=== PATIENT | male | born 2000 | race Caucasian/White ===

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

== ENCOUNTER 2024-10-03 21:06 | Emergency (ER) | payer BC, OTHER ==
[2024-10-03 21:19] VITALS: TEMP 98.7
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
[2024-10-03 23:48] VITALS: O2SAT 97
[2024-10-03] MEDS ORDERED: BACIGUENT PACKET ONE ×2 (23:52→23:55)
[2024-10-03] MEDS: BACIGUENT PACKET TP ONE (23:55)
[2024-10-04 00:07] VITALS: BP 128/79; PULSE 66; RESP 17
== END 2024-10-04 00:08 | disposition home or self-care (01) ==
LOC: ED 21:06
DX: S00.93XA Contusion of unspecified part of head, initial encounter (principal); S00.33XA Contusion of nose, initial encounter; Y04.2XXA Assault by strike against or bumped into by another person, initial encounter; Y92.143 Cell of prison as the place of occurrence of the external cause; Y99.0 Civilian activity done for income or pay; Z72.0 Tobacco use
CPT/HCPCS: 70450; 70486; 99284; A9270-GY